=== PATIENT | female | born 1980 | race Caucasian/White ===

== ENCOUNTER 2019-04-20 10:15 | Emergency (ER) | payer SELFPAY ==
[~2019-04-20] VITALS: Ht 167.6 cm; Wt 97.2 kg
[~2019-04-20 10:15] MED LIST: HYDR-842 PO
[2019-04-20 10:23] VITALS: BP 149/83; PULSE 86; RESP 18; Ht 167.6 cm; Wt 97.2 kg
--- NOTE | 2019-04-20 19:33 | ERD ---
ER Documentation Chief Complaint Chief Complaint Pt. had panic attack episode after thinking that "my mother past away" HPI 38yo F presents with complaint of left sided chest pain radiating to the left arm with SOB and tingling to the extremity since this morning. Pt states symptoms began after thinking about her mother who recently . She believes she may be having a panic attack, however, states no diagnosed hx of anxiety or panic attack. She notes her symptoms have improved since presenting to the ER but still feels tingling in her left arm. She is a non-smoker, denies hormone use, no cardiac hx, no recent long distance travel, no hemoptysis. ROS All systems reviewed and are negative except as per history of present illness. Medications Home Meds Active Scripts Hydroxyzine Hcl* (Atarax*) 25 Mg Tab, 25 MG PO BID for ANXIETY, #10 TAB Prov:BARAK SOUTH PA-C 04/20/19 Allergies Allergies: Coded Allergies: Penicillins (Verified Allergy, Unknown, 04/20/19) PMhx/Soc Medical and Surgical Hx: pt denies Medical Hx, pt denies Surgical Hx History of Surgery: No Anesthesia Reaction: No Hx Neurological Disorder: No Hx Respiratory Disorders: No Hx Cardiac Disorders: No Hx Psychiatric Problems: No Hx Miscellaneous Medical Probl: No Hx Alcohol Use: No Hx Substance Use: No Hx Tobacco Use: No Smoking Status: Never smoker Physical Exam Vitals Vital Signs Date Temp Pulse Resp B/P (MAP) Pulse Ox O2 O2 Flow FiO2 Time Delivery Rate 04/20/19 98.3 86 18 149/83 100 10:23 (105) Physical Exam Constitutional: Well developed. Well nourished. No acute distress Head/Eyes: Atraumatic. Normocephalic. PERRL. EOMI ENT: Moist mucous membranes. Voice normal. Neck: Supple. No lymphadenopathy Cardiovascular: Regular rate and rhythm. No murmurs, rubs, or gallops. Distal pulses intact Respiratory: No respiratory distress. Normal breath sounds. No wheezes, rales, or rhonchi. Abdominal: Soft. Non-tender. No guarding, rebound, or rigidity. Non-distended. Extremities: No edema, Full ROM Skin: Dry. No rashes. Warm Neurological: Alert and oriented X 3. Normal speech Psychiatric: Normal mood. Normal affect Result Diagram: 04/20/19 1114 04/20/19 1114 Results 24 hrs Laboratory Tests Test 04/20/19 11:11 04/20/19 11:14 POC Beta HCG, Qualitative NEGATIVE White Blood Count 10.3 10^3/ul Red Blood Count 4.70 10^6/ul Hemoglobin 13.8 g/dl Hematocrit 41.7 % Mean Corpuscular Volume 88.7 fl Mean Corpuscular Hemoglobin 29.4 pg Mean Corpuscular Hemoglobin Concent 33.1 g/dl Red Cell Distribution Width 12.6 % Platelet Count 438 10^3/UL Mean Platelet Volume 8.9 fl Immature Granulocytes % 0.300 % Neutrophils % 72.5 % Lymphocytes % 21.2 % Monocytes % 5.2 % Eosinophils % 0.4 % Basophils % 0.4 % Nucleated Red Blood Cells % 0.0 /100WBC Immature Granulocytes # 0.030 10^3/ul Neutrophils # 7.5 10^3/ul Lymphocytes # 2.2 10^3/ul Monocytes # 0.5 10^3/ul Eosinophils # 0.0 10^3/ul Basophils # 0.0 10^3/ul Nucleated Red Blood Cells # 0.0 10^3/ul Sodium Level 139 mmol/L Potassium Level 3.8 mmol/L Chloride Level 101 mmol/L Carbon Dioxide Level 26 mmol/L Anion Gap 12 Blood Urea Nitrogen 9 mg/dl Creatinine 0.53 mg/dl Est Glomerular Filtrat Rate mL/min > 60 mL/min Glucose Level 178 mg/dl Calcium Level 9.7 mg/dl Troponin I < 0.012 ng/ml Procedures/MDM EKG: Signed by Rate/Rhythm: Normal Sinus Rhythm at a rate of 71 beats per minute QRS, ST, T-waves: No changes consistent w/ acute ischemia Impression: No evidence of ischemia or arrhythmia MDM: This is a 38yo F who presents for anxiety and associated chest pain radiating to the left arm. Given pt symptoms of chest pain, cardiac panel performed as pt has no previous hx of anxiety. VS noted. Patient is well- appearing / non-toxic. History, exam and lab findings were reviewed and are stable. EKG NSR and troponin negative. Low suspicion for ACS, dissection, PE, PTX or pneumonia. Patient was reassured symptoms likely d/t anxiety and counseled regarding need for follow-up with PCP and or therapist in the next 1-2 days. Patient will be d/c home and is told to return to ED for worsening pain, dyspnea, and other concerns. I have discharged the pt home with a prescription for atarax prn anxiety. Pt expressed verbal understanding and agreement to tr eatment plan. All questions addressed and answered. Departure Diagnosis: Primary Impression: Anxiety Condition: Good Patient Instructions: Anxiety Reaction BARAK SOUTH PA-C Apr 20, 2019 19:33
== END 2019-04-20 12:26 | disposition home or self-care (01) ==
LOC: FTE 10:15
DX: F41.9 Anxiety disorder, unspecified (principal)
CPT/HCPCS: 80048; 81025; 84484; 85025; 93005